=== PATIENT | male | born 1950 | race Caucasian/White ===

== ENCOUNTER → 2016-11-12 | Outpatient (CLI) | payer MEDICARE ==
[~2016-11-12] MED LIST: CIPRO250 MG PO; COLACE PO; FERROUS GLUCON324 M2 PO; FLUTICASONE PRO15 G1 TOP; HYDROXYZINE HCL10 MG PO; IRON TABLETS1 TAB PO; LORTAB 10-5001 EACH PO; LORTAB 7.51 TAB DOB; LOVENOX40 MG/0.4 SUBQ; NO MEDICATIONS; SYMBICORT INH; TAMSULOSIN HCL0.4 MG PO; TYLENOL #3 PO
--- NOTE | ~2016-11-12 | CT57 ---
[facility] A Service of [facility] & [facility] RADIOLOGY TEXT RESULTS PATIENT: VENECIA OVERTON [facility] UNIT #: [id number] AGE: [address]: Phil Alejandro MD SEX: M ORDER DR: [id number] [facility] [address] [place], [place] [address] [id number] O MR#: [id number] [facility] #: [id number] NAME: VENECIA OVERTON : 1950 SEX: M STUDY DATE/TIME: 11/12/2016 UNIT: [facility] ROOM: STUDY DESCRIPTION: CT Chest Wo Cont Attending Physician: Phil Alejandro M.D. Referring Physician: Phil Alejandro M.D. Ordering Physician: Phil Alejandro M.D. Primary Care Physician: Flavio Saldana M.D. MEDICAL IMAGING REPORT This report is preliminary unless electronic signature is present EXAM CT chest without contrast, 11/12/2016, 0932 hours. HISTORY 66-year-old man with history of emphysema, pulmonary fibrosis, smoking 1 pack per day for evaluation of persistent shortness of air, which is chronic. COMPARISON STUDIES CT chest, 08/24/2016, and PET/CT scan 05/24/2016. TECHNIQUE Helical noncontrasted images were obtained from the thoracic inlet through the adrenal glands. Sagittal and coronal reconstructions were performed. Total exam DLP 139 mGy-cm. This CT exam was performed with one or more of the following radiation dose reduction techniques: automatic exposure control, adjustment of mA and/or kV according to patient size, and iterative reconstruction. FINDINGS Images through the thoracic inlet demonstrate no thyroid mass or supraclavicular adenopathy. Images through chest again demonstrate slightly prominent lymph nodes with the largest in the anterior mediastinum measuring 2.0 x 1.2 cm, previously 2.0 x 1.2 cm, similar in size. These nodes are felt to be reactive. The aorta is normal in caliber. There are coronary calcifications. Cardiac chambers, pericardium, and esophagus are normal. The lungs again are abnormal with chronic diffuse interstitial thickening involving the upper and lower lungs, more severely involving the upper STS. [facility] A Service of [facility] & [facility] RADIOLOGY TEXT RESULTS PATIENT: VENECIA OVERTON LOCATION: [facility] : 46 UNIT #: [id number] AGE: [address]: Phil Alejandro MD SEX: M ORDER DR: lungs. There are areas of honeycombing in both the upper and lower lungs, greatest at the upper lungs. There is mild dependent ground glass density at the lung bases, similar to the prior exam. The area of dense consolidation dependently at the posterior left lung base is slightly improved, and this likely represents an area of chronic atelectasis. There is no new or developing mass. Limited views through the upper abdomen demonstrate cholelithiasis. IMPRESSION 1. Again demonstrated is chronic diffuse interstitial change in the lungs, more severe in the upper lungs than lower lungs with areas of honeycombing greater in the upper lungs than lower lungs. There is mild ground glass density in the lung bases, similar to 08/24/2016. These findings are nonspecific. They are not diagnostic of UIP, given the upper lobe predominance and the ground glass changes at the lung bases, which would be atypical. 2. Dense consolidation at the left lower lobe is slightly improved and likely represents an area of chronic atelectasis with interval improvement from 08/24/2016. 3. Small hilar and anterior mediastinal lymph nodes are stable and are felt likely benign reactive nodes. 4. Coronary artery calcifications are present. 5. Cholelithiasis without evidence of cholecystitis. Dictated by... Yara Renee M.D. THIS IS AN ELECTRONICALLY VERIFIED REPORT Yara Renee M.D. at 11/13/2016 9:25 AM ABBI/katelynn TD: 11/12/2016 15:50 JOB #: [id number] MEDICAL IMAGING REPORT COPY
== END | disposition home or self-care (01) ==
LOC: CCAT 08:54
DX: J84.10 Pulmonary fibrosis, unspecified (principal); J43.9 Emphysema, unspecified; J18.1 Lobar pneumonia, unspecified organism; I25.10 Atherosclerotic heart disease of native coronary artery without angina pectoris; J98.4 Other disorders of lung; K80.20 Calculus of gallbladder without cholecystitis without obstruction
CPT/HCPCS: 71250